=== PATIENT | female | born 1970 | race Two or more races ===

== ENCOUNTER → 2024-04-21 | Outpatient (CLI) | payer MEDICAID, SELFPAY ==
--- NOTE | 2024-04-21 13:30 | XR_ITS ---
Examination: Screening digital mammography, bilateral Computer aided detection 3-D breast Tomosynthesis, bilateral Date and time of exam: April 21, 2024 1333 hours Compared to mammograms dating to February 25, 2018 Indication: Screening Technique: Nonmagnified MLO, CC views of the breasts to been obtained, reconstructed from 3-D Tomosynthesis images. R2 computer aided detection program utilized for evaluation of suspicious masses and/or abnormal calcifications. 3-D Tomosynthesis images obtained. Findings: Scattered areas of fibroglandular density. 12 mm nodule upper outer right breast anterior depth, partially circumscribed 12 mm nodule inner left breast partially circumscribed Impression: BI-RADS Category 0: Incomplete: Need additional imaging evaluation 12 mm nodule upper outer right breast, recommend follow-up spot tomographic views 12 mm nodule inner left breast, recommend follow-up spot tomographic views Recommend bilateral breast sonography to complete the workup
== END | disposition home or self-care (01) ==
LOC: CDIM 13:21
PROVIDERS: Referring Provider Specialist; Visit Provider Specialist
DX: Z12.31 Encounter for screening mammogram for malignant neoplasm of breast (principal); R92.8 Other abnormal and inconclusive findings on diagnostic imaging of breast; N63.11 Unspecified lump in the right breast, upper outer quadrant; N63.20 Unspecified lump in the left breast, unspecified quadrant
CPT/HCPCS: 77063; 77067

== ENCOUNTER → 2024-04-24 | Outpatient (CLI) | payer MEDICAID, SELFPAY ==
--- NOTE | 2024-04-24 | XR_ITS ---
Examination: Breast ultrasound complete, bilateral Date and time of exam: April 24, 2024 1218 hours INDICATIONS: Mammogram April 21, 2024 12 mm nodule upper outer right breast, 12 mm nodule inner left breast Technique: Real-time grayscale ultrasonographic imaging bilateral breasts, including all 4 quadrants as well as nipple retroareolar and axillary regions. Findings: Sonographic images right breast 10:00 cyst 14 x 16 mm 2.4 cm axillary lymph node No solid nodules Sonographic images left breast 9:00 cyst 11 x 5 x 11 mm No solid nodules IMPRESSION: BI-RADS Category 2: Benign findings
--- NOTE | 2024-04-24 11:53 | XR_ITS ---
Examination: Diagnostic digital mammography, bilateral Computer aided detection 3-D breast Tomosynthesis, bilateral Date and time of exam: April 24, 2024 1238 hours INDICATIONS: Mammogram April 21, 2024 12 mm nodule upper outer right breast, 12 mm nodule inner left breast Technique: Nonmagnified MLO, CC views of the breasts to been obtained, reconstructed from 3-D Tomosynthesis images. R2 computer aided detection program utilized for evaluation of suspicious masses and/or abnormal calcifications. 3-D Tomosynthesis images obtained. Findings: Scattered areas of fibroglandular density Focal asymmetry does remain on the spot compressions lower right breast and upper right breast on the MLO view likely corresponding to the 10:00 cyst described on ultrasound study today No suspicious nodule on the spot compression left imaging noted Impression: BI-RADS Category 3: Probably benign findings One additional right mammogram 6 month follow-up is needed.
== END | disposition home or self-care (01) ==
PROVIDERS: PCP Family Medicine; Referring Provider Specialist; Visit Provider Specialist
DX: R92.333 Mammographic heterogeneous density, bilateral breasts (principal)
CPT/HCPCS: 76641; 77062; 77066; G0279

== ENCOUNTER 2024-04-30 14:00 | Outpatient (RCR) | payer MEDICAID, SELFPAY ==
--- NOTE | 2024-04-09 13:41 | PTNOTE_ITS ---
PT OP Initial Eval Patient Information Outpatient Physical Therapy Treatment Date: 04/09/24 Visit Reasons: Fracture of left lower leg Medical Diagnosis: [id number] Treatment Dx #1: L LE pain Start of Care: 04/09/24 Date of Onset: 12/19/24 Smoking Status Smoking Status: Never smoker Initial Assessment Subjective: Pt is 54 yr old anguillan speaking female s/p L distal fibula FX in November presents ambulating without assistive device. She had stepped wrong to fracture it. She reports she was using a knee scooter until starting to walk last week on her own. Pt reports swelling and pain of L ankle worse in the afternoon. She can ambulate HH distances slowly with a limp. PMH: high cholesterol Imaging: with provider Pt goal: to walk 100% without pain Objective: L ankle ArOM: DF: -4 deg PF: 35 deg Inversion: 3 deg Eversion: unable Observation: high edema of lateral malleolus Edema: R: 28 cm, L: 25 cm circumference Gait: antalgic, unsymmetrical TTP: moderate of lateal malleolus Assessment: Pt presents with limited L ankle ROM and WB tolerance consistent with distal fibula FX. Pt requires skilled therapy to meet goals and requires skilled therapy to meet goals and has fair rehab potential. Short Term and Correction Goals 1. Ind with HEP 2. Improved ankle DF ROM to at least 8 deg and PF to 45 deg 3. Pt will ambulate with symmetrical pattern community distances Treatment Plan ? 1. Manual therapy ? 2. Therex ? 3. Modalities as indicated, moist heat, ice, estim Frequency and Duration: 2x a week for 6 weeks plus evaluation Certification Dates: 04/09/24 to 07/06/24 Procedure Charges OP PT Eval Mod Complex 30 minutes: Yes
--- NOTE | 2024-04-13 14:31 | PT.ODAYNRPT ---
PT Outpatient Daily Note OP Daily Note Outpatient Physical Therapy Treatment Date: 04/13/24 Visit Reasons: Fracture of left lower leg Subjective: Same as time of evaluation Objective: See F/S for therex MT: STM ankle x5' Assessment: Mod/high pain of ankle at end-range DF and PF consistent with adhesions Plan: Continue per POC Length of Time (minutes) of Treatment: 30 Minutes Procedure Charges Therapeutic Exercise 30 minutes: Yes
--- NOTE | 2024-04-16 15:25 | PT.ODAYNRPT ---
PT Outpatient Daily Note OP Daily Note Outpatient Physical Therapy Treatment Date: 04/16/24 Visit Reasons: Fracture of left lower leg Subjective: Some mild soreness after last visit in the L ankle and foot and points to dorsal foot Objective: See F/S for therex MT: STM ankle x5' Assessment: Mod/high pain of ankle at end-range DF and PF consistent with adhesions Plan: Continue per POC Length of Time (minutes) of Treatment: 30 Minutes Procedure Charges Therapeutic Exercise 30 minutes: Yes
--- NOTE | 2024-04-22 15:22 | PT.ODAYNRPT ---
PT Outpatient Daily Note OP Daily Note Outpatient Physical Therapy Treatment Date: 04/22/24 Visit Reasons: Fracture of left lower leg Subjective: Some mild soreness after last visit in the L ankle and foot and points to dorsal foot Objective: See F/S for therex Assessment: Mod/high pain of ankle at end-range DF and PF consistent with adhesions. Pt arrived about 5 minutes late today. Plan: Continue per POC Length of Time (minutes) of Treatment: 25 Minutes Procedure Charges Therapeutic Exercise 30 minutes: Yes
--- NOTE | 2024-04-24 14:02 | PT.ODAYNRPT ---
PT Outpatient Daily Note OP Daily Note Outpatient Physical Therapy Treatment Date: 04/24/24 Visit Reasons: Fracture of left lower leg Subjective: Some mild soreness after last visit in the L ankle and foot and points to dorsal foot Objective: See F/S for therex MT: [facility] L ankle and foot x7' Assessment: Mod/high pain of ankle at end-range DF and PF consistent with scar tissue adhesions. Plan: Continue per POC Length of Time (minutes) of Treatment: 30 Minutes Procedure Charges Therapeutic Exercise 30 minutes: Yes
--- NOTE | 2024-04-30 19:17 | PTNOTE_ITS ---
PT Outpatient Daily Note OP Daily Note Outpatient Physical Therapy Treatment Date: 04/30/24 Visit Reasons: Fracture of left lower leg Subjective: Some mild soreness after last visit in the L ankle and foot and points to dorsal foot Objective: See F/S for therex MT: [facility] L ankle and foot x7' Assessment: Mod/high pain of ankle at end-range DF and PF consistent with scar tissue adhesions. Plan: Continue per POC Length of Time (minutes) of Treatment: 30 Minutes Procedure Charges Therapeutic Exercise 30 minutes: Yes
== END 2024-05-01 23:59 | disposition home or self-care (01) ==
LOC: CPTX 14:00
PROVIDERS: PCP Family Medicine; Referring Provider Family Medicine; Visit Provider Family Medicine
DX: M25.572 Pain in left ankle and joints of left foot (principal); S82.832D Other fracture of upper and lower end of left fibula, subsequent encounter for closed fracture with routine healing; X58.XXXD Exposure to other specified factors, subsequent encounter
CPT/HCPCS: 97110; 97162

== ENCOUNTER 2024-05-28 09:00 | Outpatient (RCR) | payer MEDICAID, SELFPAY ==
--- NOTE | 2024-05-05 14:21 | PT.ODAYNRPT ---
PT Outpatient Daily Note OP Daily Note Outpatient Physical Therapy Treatment Date: 05/05/24 Visit Reasons: left leg fracture Subjective: Some mild soreness after last visit in the L ankle and foot and points to dorsal foot Objective: See F/S for therex MT: STM L ankle and foot x7' Assessment: Mod/high pain of ankle at end-range DF and PF consistent with scar tissue adhesions. Plan: Continue per POC Length of Time (minutes) of Treatment: 30 Minutes Procedure Charges Therapeutic Exercise 30 minutes: Yes
--- NOTE | 2024-05-07 14:29 | PT.ODAYNRPT ---
PT Outpatient Daily Note OP Daily Note Outpatient Physical Therapy Treatment Date: 05/07/24 Visit Reasons: left leg fracture Subjective: Pt reports leg is doing better but pain is still present. Objective: Please see flow sheet for ther ex list. Assessment: Pt ambulates with antalgic gait, c/o increase pain with WB. Plan: Continue with POC. Length of Time (minutes) of Treatment: 30 Minutes Procedure Charges Therapeutic Exercise 30 minutes: Yes
--- NOTE | 2024-05-12 14:51 | PT.ODAYNRPT ---
PT Outpatient Daily Note OP Daily Note Outpatient Physical Therapy Treatment Date: 05/12/24 Visit Reasons: left leg fracture Subjective: Some mild soreness after last visit in the L ankle and foot and points to dorsal foot Objective: See F/S for therex Assessment: Difficulty with heel raises, unable to raise to full height Plan: Continue per POC Length of Time (minutes) of Treatment: 30 Minutes Procedure Charges Therapeutic Exercise 30 minutes: Yes
--- NOTE | 2024-05-14 18:18 | PT.ODAYNRPT ---
PT Outpatient Daily Note OP Daily Note Outpatient Physical Therapy Treatment Date: 05/14/24 Visit Reasons: left leg fracture Subjective: Some mild soreness after last visit in the L ankle and foot and points to dorsal foot Objective: See F/S for therex MT: STM L ankle x5' Assessment: Difficulty with heel raises, unable to raise to full height Plan: Continue per POC Length of Time (minutes) of Treatment: 30 Minutes Procedure Charges Therapeutic Exercise 30 minutes: Yes
--- NOTE | 2024-05-22 16:15 | PT.ODAYNRPT ---
PT Outpatient Daily Note OP Daily Note Outpatient Physical Therapy Treatment Date: 05/22/24 Visit Reasons: left leg fracture Subjective: Pt reports foot is feeling better but still has pain on the top of the foot. Objective: Please see flow sheet for ther ex list. Assessment: Pt instructed on updated HEP, pt able to replicate with good technique. Plan: Continue with POC. Length of Time (minutes) of Treatment: 30 Minutes Procedure Charges Therapeutic Exercise 30 minutes: Yes
--- NOTE | 2024-05-26 14:51 | PT.ODAYNRPT ---
PT Outpatient Daily Note OP Daily Note Outpatient Physical Therapy Treatment Date: 05/26/24 Visit Reasons: left leg fracture Subjective: Pt reports L LE is doing ok, still has occasional pain. Objective: Please see flow sheet for ther ex list. Assessment: Pt demonstrates decrease pain with active DF exercise indicating progress. Plan: Assess for Note. Length of Time (minutes) of Treatment: 30 Minutes Procedure Charges Therapeutic Exercise 30 minutes: Yes
--- NOTE | 2024-05-28 09:29 | PT.ODS1RPT ---
PT OP Progress/Discharge Note Date of Service: 05/28/24 Progress Note/DC Note Progress Note/Discharge Note: Progress Note Patient Information Visit Reasons: left leg fracture Service Continue Service or Discharge: Continue Service Status Subjective: Some mild soreness after last visit in the L ankle and foot and points to dorsal foot Objective: See F/S for therex MT: STM L ankle x5' L ankle AROM: DF: 8 deg PF: 45 deg Gait: antalgic TTP: moderate of lateral malleolus Assessment: Pt has attended 12/12 Rx sessions plus the eval with good but slow progress with L ankle goals limited by high levels of scar tissue. Pt has improved DF ROM to 8 deg and PF to 45 deg to meet that goal. Pt is ambulating with antalgia and unsymmetrical pattern and has not met that goal. Pt has less difficulty with heel raises, unable to raise to full height. Pt would benefit from continued therapy to reduce scar tissue pain and improve WB tolerance. Plan: Request additional visits x8 to reduce scar tissue pain and limitations. We will need provider's signature on this note or a new referral and additional authorized visits to continue with therapy. Procedure Charges Therapeutic Exercise 30 minutes: Yes
== END 2024-05-29 23:59 | disposition home or self-care (01) ==
LOC: CPTX 09:00
PROVIDERS: PCP Family Medicine; Referring Provider Family Medicine; Visit Provider Family Medicine
DX: M79.662 Pain in left lower leg (principal); M25.572 Pain in left ankle and joints of left foot; S82.832D Other fracture of upper and lower end of left fibula, subsequent encounter for closed fracture with routine healing; X58.XXXD Exposure to other specified factors, subsequent encounter
CPT/HCPCS: 97110

== ENCOUNTER 2024-06-23 14:31 | Outpatient (RCR) | payer MEDICAID, SELFPAY ==
--- NOTE | 2024-06-23 16:08 | PT.ODAYNRPT ---
PT Outpatient Daily Note OP Daily Note Outpatient Physical Therapy Treatment Date: 06/23/24 Visit Reasons: Fracture of lower left leg Subjective: Pt returns with more authorized visits. Some mild soreness in the L ankle and foot. Doing HEP Objective: See F/S for therex MT: STM L ankle x5' Assessment: Difficulty with heel raises, unable to raise to full height Plan: Continue per POC Length of Time (minutes) of Treatment: 30 Minutes Procedure Charges Therapeutic Exercise 30 minutes: Yes
== END 2024-06-29 23:59 | disposition home or self-care (01) ==
LOC: CPTX 14:31
PROVIDERS: PCP Family Medicine; Referring Provider Family Medicine; Visit Provider Family Medicine
DX: M79.662 Pain in left lower leg (principal); S82.832D Other fracture of upper and lower end of left fibula, subsequent encounter for closed fracture with routine healing; X58.XXXD Exposure to other specified factors, subsequent encounter
CPT/HCPCS: 97110

== ENCOUNTER 2024-07-28 13:30 | Outpatient (RCR) | payer MEDICAID, SELFPAY ==
--- NOTE | 2024-06-30 14:43 | PT.ODAYNRPT ---
PT Outpatient Daily Note OP Daily Note Outpatient Physical Therapy Treatment Date: 06/30/24 Visit Reasons: Fracture of lower leg Subjective: Some mild soreness in the L ankle and foot. Doing HEP Objective: See F/S for therex Assessment: Difficulty with heel raises, unable to raise to full height. Continued edema and scar tissue adhesions in ankle. Plan: Continue per POC Length of Time (minutes) of Treatment: 30 Minutes Procedure Charges Therapeutic Exercise 30 minutes: Yes
--- NOTE | 2024-07-07 14:03 | PT.ODAYNRPT ---
PT Outpatient Daily Note OP Daily Note Outpatient Physical Therapy Treatment Date: 07/07/24 Visit Reasons: Fracture of lower leg Subjective: Some mild soreness in the L ankle and foot. Doing HEP Objective: See F/S for therex Assessment: Continued edema and high levels of scar tissue adhesions in ankle. Plan: Continue per POC Length of Time (minutes) of Treatment: 30 Minutes Procedure Charges Therapeutic Exercise 30 minutes: Yes
--- NOTE | 2024-07-14 17:55 | PT.ODAYNRPT ---
PT Outpatient Daily Note OP Daily Note Outpatient Physical Therapy Treatment Date: 07/14/24 Visit Reasons: Fracture of lower leg Subjective: Some mild soreness in the L ankle and foot. Doing HEP Objective: See F/S for therex Assessment: Continued edema and high levels of scar tissue adhesions in ankle which limits ankle DF ROM and WB tolerance. Plan: Continue per POC Length of Time (minutes) of Treatment: 30 Minutes Procedure Charges Therapeutic Exercise 30 minutes: Yes
--- NOTE | 2024-07-20 15:46 | PT.ODAYNRPT ---
PT Outpatient Daily Note OP Daily Note Outpatient Physical Therapy Treatment Date: 07/20/24 Visit Reasons: Fracture of lower leg Subjective: Some mild soreness in the L ankle and foot with going down stairs but overall better strength. Doing HEP Objective: See F/S for therex Assessment: Continued edema and high levels of scar tissue adhesions in ankle which limits ankle DF ROM and WB tolerance. Plan: Continue per POC Length of Time (minutes) of Treatment: 30 Minutes Procedure Charges Therapeutic Exercise 30 minutes: Yes
--- NOTE | 2024-07-28 14:50 | PT.ODAYNRPT ---
PT Outpatient Daily Note OP Daily Note Outpatient Physical Therapy Treatment Date: 07/28/24 Visit Reasons: Fracture of lower leg Subjective: Some mild soreness in the L ankle and foot with going down stairs but overall better strength. Doing HEP Objective: See F/S for therex Assessment: Improved strength and WB tolerance since starting therapy. Plan: Continue per POC Length of Time (minutes) of Treatment: 30 Minutes Procedure Charges Therapeutic Exercise 30 minutes: Yes
== END 2024-07-29 23:59 | disposition home or self-care (01) ==
LOC: CPTX 13:30
PROVIDERS: PCP Family Medicine; Referring Provider Family Medicine; Visit Provider Family Medicine
DX: M79.662 Pain in left lower leg (principal); S82.832D Other fracture of upper and lower end of left fibula, subsequent encounter for closed fracture with routine healing; X58.XXXD Exposure to other specified factors, subsequent encounter
CPT/HCPCS: 97110

== ENCOUNTER 2024-08-11 13:00 | Outpatient (RCR) | payer MEDICAID, SELFPAY ==
--- NOTE | 2024-08-04 14:24 | PT.ODAYNRPT ---
PT Outpatient Daily Note OP Daily Note Outpatient Physical Therapy Treatment Date: 08/04/24 Visit Reasons: fracture left lower leg Subjective: Some mild soreness in the L ankle and foot with going down stairs but overall better strength. Doing HEP Objective: See F/S for therex Assessment: Improved strength and WB tolerance since starting therapy. Plan: Reassess Length of Time (minutes) of Treatment: 30 Minutes Procedure Charges Therapeutic Exercise 30 minutes: Yes
--- NOTE | 2024-08-11 14:31 | PT.ODS1RPT ---
PT OP Progress/Discharge Note Date of Service: 08/11/24 Progress Note/DC Note Progress Note/Discharge Note: DC Note Patient Information Visit Reasons: fracture left lower leg Service Continue Service or Discharge: Discharge Discharge Date: 08/11/24 Status Subjective: Overall better with less pain in L ankle and foot. She is ambulating about 30 minutes for exercise Objective: See F/S for therex L ankle AROM: DF: 13 deg PF: 45 deg Gait: symmetrical TTP: min of lateral malleolus Assessment: Pt has attended / Rx sessions plus the eval with good progress with L ankle goals. Pt has improved DF ROM to 13 deg and PF to 45 deg to meet that goal. Pt is ambulating with symmetrical pattern community distances to meet that goal. Pt can do heel raises and squats. Gave updated HEP and printout Plan: D/C with HEP Procedure Charges Therapeutic Exercise 30 minutes: Yes
== END 2024-08-29 23:59 | disposition home or self-care (01) ==
LOC: CPTX 13:00
PROVIDERS: PCP Family Medicine; Referring Provider Family Medicine; Visit Provider Family Medicine
DX: M79.605 Pain in left leg (principal); S82.832D Other fracture of upper and lower end of left fibula, subsequent encounter for closed fracture with routine healing; X58.XXXD Exposure to other specified factors, subsequent encounter
CPT/HCPCS: 97110

== ENCOUNTER → 2024-11-24 | Outpatient (CLI) | payer MEDICAID, SELFPAY ==
--- NOTE | 2024-11-24 15:45 | XR_ITS ---
Examination: Diagnostic digital mammography, unilateral, right Computer aided detection 3-D breast Tomosynthesis, unilateral Date and time of exam: 11/24/2024, 3:51 PM Comparisons: March 07, 2019 through April 24, 2024 Indications: Interval follow-up evaluation of right focal asymmetries Technique: Nonmagnified MLO, CC views of the right breast have been obtained, reconstructed from 3-D Tomosynthesis images. R2 computer aided detection program utilized for evaluation of suspicious masses and/or abnormal calcifications. 3-D Tomosynthesis images obtained. Technologist: Findings: There are scattered areas of fibroglandular density. No evidence of abnormal masses or suspicious calcifications. Benign appearing focal asymmetry appears stable. Impression: BI-RADS category 2: Benign findings Recommend 1 year follow-up mammogram
== END | disposition home or self-care (01) ==
LOC: CDIM 15:36
PROVIDERS: Referring Provider Specialist; Visit Provider Specialist
DX: R92.321 Mammographic fibroglandular density, right breast (principal); R92.0 Mammographic microcalcification found on diagnostic imaging of breast
CPT/HCPCS: 77061; 77065; G0279